=== PATIENT | male | born 1965 | race Caucasian/White ===

== ENCOUNTER 2016-10-06 12:36 | Inpatient (IN) | payer BC, OTHER, MEDICARE ==
[2016-10-06] MEDS ORDERED: HumuLIN R SUBCUT PRN (14:42)
[2016-10-06] MEDS ORDERED: PHARMACY CONSULT - DOSE _____ XX SCH (14:42)
[2016-10-06 15:21] LABS: BASOPHILS % (AUTO) 0.9 % (0.2-1.0); EOSINOPHILS # (AUTO) 0.2 x10^3/uL (0.0-0.2); EOSINOPHILS % (AUTO) 4.6 % (0.9-2.9); HEMATOCRIT 41.2 % (42.0-54.0); LYMPHOCYTES # (AUTO) 1.7 X10^3/uL (1.3-2.9); LYMPHOCYTES % (AUTO) 32.4 % (21.0-51.0); MEAN CORPUSCULAR HEMOGLOBIN 29.6 pg (27.0-34.0); MEAN CORPUSCULAR VOLUME 87.2 fL (80.0-100.0); MEAN PLATELET VOLUME 8.4 fL (7.4-11.0); MONOCYTES # (AUTO) 0.4 x10^3/uL (0.3-0.8); MONOCYTES % (AUTO) 7.1 % (0.0-13.0); NEUTROPHILS # (AUTO) 2.8 x10^3/uL (2.2-4.8); PLATELET COUNT 182 X10^3/uL (150.0-450.0); RED BLOOD COUNT 4.72 X10^6/uL (4.7-6.0); RED CELL DISTRIBUTION WIDTH 13.5 % (11.6-16.5); WHITE BLOOD COUNT 5.1 X10^3/uL (3.6-10.0)
[2016-10-06 15:36] LABS: ALANINE AMINOTRANSFERASE 40 Units/L (12-78); ALBUMIN 3.5 g/dL (3.4-5.0); ALKALINE PHOSPHATASE 61 Units/L (46-116); ASPARTATE AMINO TRANSFERASE 23 Units/L (15-37); BLOOD UREA NITROGEN 21 mg/dL (7-18); CALCIUM 8.2 mg/dL (8.5-10.1); CARBON DIOXIDE 30.8 mmol/L (21-32); CHLORIDE 109 mmol/L (98-107); GLUCOSE 93 mg/dL (65-99); SODIUM 144 mmol/L (136-145); TOTAL PROTEIN 7.1 g/dL (6.4-8.2); eGFR BLACK RACES > 60 (>60); eGFR NON BLACK RACES > 60 (>60)
[2016-10-06] MEDS: NS 1000 ML 1,000 ML IV SCH (16:28)
[2016-10-06] MEDS: VANCOMYCIN 1 GM PREMIX (ADDVANTAGE) 250 ML IV SCH ×2 (16:29→21:00)
[2016-10-06] MEDS: DURAGESIC 75 mcg/HR PATCH TD SCH (17:44)
[2016-10-06] MEDS: SNACK - Diabetic Appropriate PO SCH (20:48)
[2016-10-06] MEDS: RESTORIL CAP 30 MG PO SCH (20:50)
[2016-10-06] MEDS: NORCO 10/325 TAB PO PRN (20:50)
[2016-10-06] MEDS: TOPAMAX PO SCH (20:51)
[2016-10-06] MEDS: ZANAFLEX PO SCH (20:51)
[2016-10-06] MEDS: KLONOPIN TAB 1 MG PO SCH (20:51)
[2016-10-06] MEDS: NEURONTIN CAP 300 MG PO SCH (21:00)
--- NOTE | 2016-10-06 21:51 | DR.UPDATE ---
H&P Update History and Physical Update: WAS SEEN IN OUR OFFICE TODAY WITH COMPLAINTS OF LEFT LOWER LEG CELLULITIS THAT HAS NOT IMPROVED DESPITE A 7 DAY COURSE OF CIPRO 500MG BID. HE IS NOTED WITH REDNESS AND WARMTH TO LEFT LOWER LEG. WE ADMITTED HIM FOR FURTHER TREATMENT AND EVALUATION. A H&P WAS COMPLETED WITH HIS LAST VISIT TO THE OFFICE ON 09/29/16. HE HAS BEEN SEEN AND EXAMINED WITH NO CHANGES NOTED TO H&P. Changes noted: NO Yes with the following:
[2016-10-07] MEDS: NEURONTIN CAP 300 MG PO SCH ×3 (06:12→21:48)
[2016-10-07] MEDS: VANCOMYCIN 1 GM PREMIX (ADDVANTAGE) 250 ML IV SCH ×3 (06:13→21:46)
[2016-10-07] MEDS: NS 1000 ML 1,000 ML IV SCH ×2 (06:14→17:59)
[2016-10-07 06:21] LABS: BASOPHILS % (AUTO) 0.6 % (0.2-1.0); EOSINOPHILS # (AUTO) 0.3 x10^3/uL (0.0-0.2); HEMATOCRIT 42.3 % (42.0-54.0); HEMOGLOBIN 13.9 g/dL (13.5-18.0); LYMPHOCYTES # (AUTO) 2.1 X10^3/uL (1.3-2.9); LYMPHOCYTES % (AUTO) 40.2 % (21.0-51.0); MEAN CORPUSCULAR HEMOGLOBIN 29.2 pg (27.0-34.0); MEAN CORPUSCULAR HGB CONC 32.8 g/dL (33.0-35.0); MEAN CORPUSCULAR VOLUME 89.1 fL (80.0-100.0); MEAN PLATELET VOLUME 8.9 fL (7.4-11.0); MONOCYTES # (AUTO) 0.3 x10^3/uL (0.3-0.8); MONOCYTES % (AUTO) 5.6 % (0.0-13.0); NEUTROPHILS # (AUTO) 2.5 x10^3/uL (2.2-4.8); NEUTROPHILS % (AUTO) 48.6 % (42.0-75.0); PLATELET COUNT 154 X10^3/uL (150.0-450.0); RED BLOOD COUNT 4.74 X10^6/uL (4.7-6.0); RED CELL DISTRIBUTION WIDTH 13.7 % (11.6-16.5); WHITE BLOOD COUNT 5.2 X10^3/uL (3.6-10.0)
[2016-10-07 06:48] LABS: ALANINE AMINOTRANSFERASE 36 Units/L (12-78); ALBUMIN 3.2 g/dL (3.4-5.0); ALKALINE PHOSPHATASE 53 Units/L (46-116); ASPARTATE AMINO TRANSFERASE 18 Units/L (15-37); BLOOD UREA NITROGEN 18 mg/dL (7-18); CALCIUM 7.9 mg/dL (8.5-10.1); CARBON DIOXIDE 30.1 mmol/L (21-32); CHLORIDE 111 mmol/L (98-107); COR CA(FOR HYPOALB) 8.5 mg/dL (8.5-10.1); CREATININE 0.97 mg/dL (0.70-1.30); GLUCOSE 88 mg/dL (65-99); SODIUM 145 mmol/L (136-145); TOTAL PROTEIN 6.8 g/dL (6.4-8.2); eGFR BLACK RACES > 60 (>60); eGFR NON BLACK RACES > 60 (>60)
[2016-10-07] MEDS: LEVAQUIN PREMIX IV 500 MG 500 MG/100 ML BAG IV SCH (08:48)
[2016-10-07] MEDS: MOBIC TAB 15 MG PO SCH (08:48)
[2016-10-07] MEDS: REQUIP PO SCH (08:48)
[2016-10-07] MEDS: KLONOPIN TAB 1 MG PO SCH ×2 (08:49→21:49)
[2016-10-07] MEDS: TOPAMAX PO SCH ×2 (08:49→21:48)
[2016-10-07] MEDS: ZANAFLEX PO SCH ×2 (08:49→21:48)
[2016-10-07] MEDS: LOPRESSOR TAB 50 MG PO SCH (08:49)
[2016-10-07] MEDS: PriLOSEC PO SCH (08:49)
[2016-10-07] MEDS ORDERED: CYMBALTA PO SCH (09:00)
[2016-10-07 13:49] LABS: CREATININE 0.94 mg/dL (0.70-1.30); VANCOMYCIN,TROUGH 12.9 ug/mL (15-20)
[2016-10-07] MEDS ORDERED: PHARMACY CONSULT - VANCOMYCIN XX SCH (21:00)
[2016-10-07] MEDS: NORCO 10/325 TAB PO PRN (21:47)
[2016-10-07] MEDS: RESTORIL CAP 30 MG PO SCH (21:48)
[2016-10-07] MEDS: SNACK - Diabetic Appropriate PO SCH (21:50)
[2016-10-08 06:20] LABS: BASOPHILS % (AUTO) 0.9 % (0.2-1.0); EOSINOPHILS # (AUTO) 0.3 x10^3/uL (0.0-0.2); EOSINOPHILS % (AUTO) 5.7 % (0.9-2.9); HEMATOCRIT 40.7 % (42.0-54.0); HEMOGLOBIN 13.5 g/dL (13.5-18.0); LYMPHOCYTES # (AUTO) 2.1 X10^3/uL (1.3-2.9); LYMPHOCYTES % (AUTO) 40.2 % (21.0-51.0); MEAN CORPUSCULAR HEMOGLOBIN 29.3 pg (27.0-34.0); MEAN CORPUSCULAR VOLUME 88.8 fL (80.0-100.0); MEAN PLATELET VOLUME 8.8 fL (7.4-11.0); MONOCYTES # (AUTO) 0.3 x10^3/uL (0.3-0.8); MONOCYTES % (AUTO) 6.2 % (0.0-13.0); NEUTROPHILS # (AUTO) 2.5 x10^3/uL (2.2-4.8); PLATELET COUNT 150 X10^3/uL (150.0-450.0); RED BLOOD COUNT 4.59 X10^6/uL (4.7-6.0); RED CELL DISTRIBUTION WIDTH 13.4 % (11.6-16.5); WHITE BLOOD COUNT 5.3 X10^3/uL (3.6-10.0)
[2016-10-08] MEDS: NS 1000 ML 1,000 ML IV SCH ×2 (06:25→18:25)
[2016-10-08] MEDS: VANCOMYCIN 1 GM PREMIX (ADDVANTAGE) 250 ML IV SCH (06:25)
[2016-10-08] MEDS: NEURONTIN CAP 300 MG PO SCH ×3 (06:25→21:38)
[2016-10-08 07:18] LABS: ALANINE AMINOTRANSFERASE 36 Units/L (12-78); ALKALINE PHOSPHATASE 61 Units/L (46-116); ASPARTATE AMINO TRANSFERASE 20 Units/L (15-37); BLOOD UREA NITROGEN 21 mg/dL (7-18); CARBON DIOXIDE 25.5 mmol/L (21-32); CHLORIDE 111 mmol/L (98-107); COR CA(FOR HYPOALB) 8.8 mg/dL (8.5-10.1); COR NA(FOR HYPERGLY) 145 mmol/L (136-145); CREATININE 0.95 mg/dL (0.70-1.30); GLUCOSE 116 mg/dL (65-99); SODIUM 145 mmol/L (136-145); TOTAL PROTEIN 6.5 g/dL (6.4-8.2); eGFR BLACK RACES > 60 (>60); eGFR NON BLACK RACES > 60 (>60)
[2016-10-08] MEDS: LEVAQUIN PREMIX IV 500 MG 500 MG/100 ML BAG IV SCH (08:39)
[2016-10-08] MEDS: MOBIC TAB 15 MG PO SCH (08:43)
[2016-10-08] MEDS: REQUIP PO SCH ×2 (08:43→21:37)
[2016-10-08] MEDS: TOPAMAX PO SCH ×2 (08:44→21:36)
[2016-10-08] MEDS: LOPRESSOR TAB 50 MG PO SCH (08:44)
[2016-10-08] MEDS: ZANAFLEX PO SCH ×2 (08:44→21:36)
[2016-10-08] MEDS: KLONOPIN TAB 1 MG PO SCH ×2 (08:44→21:37)
[2016-10-08] MEDS: PriLOSEC PO SCH (08:44)
[2016-10-08 09:07] VITALS: BMI 34.0
[2016-10-08] MEDS ORDERED: INVANZ INJ 1 GM VIAL ONE (11:07)
[2016-10-08] MEDS ORDERED: NS 50 ML IV 0 ML IV ONE (11:07)
[2016-10-08] MEDS ORDERED: NS 50 ML IV + SPIKE MINIBAG* 50 ML IV ONE (11:08)
[2016-10-08] MEDS: INVANZ INJ 1 GM VIAL 1 GM in NS 50 ML IV + SPIKE MINIBAG* 50 ML IV SCH (11:22)
[2016-10-08 15:26] LABS: CREATININE 0.99 mg/dL (0.70-1.30); VANCOMYCIN,TROUGH 17.8 ug/mL (15-20)
[2016-10-08] MEDS: RESTORIL CAP 30 MG PO SCH (21:36)
[2016-10-08] MEDS: NORCO 10/325 TAB PO PRN (21:36)
[2016-10-08] MEDS: CYMBALTA PO SCH (21:37)
[2016-10-08] MEDS: SNACK - Diabetic Appropriate PO SCH (21:38)
[2016-10-09 05:09] LABS: ALANINE AMINOTRANSFERASE 37 Units/L (12-78); ALBUMIN 3.1 g/dL (3.4-5.0); ALKALINE PHOSPHATASE 51 Units/L (46-116); ASPARTATE AMINO TRANSFERASE 18 Units/L (15-37); BLOOD UREA NITROGEN 17 mg/dL (7-18); CALCIUM 8.1 mg/dL (8.5-10.1); CARBON DIOXIDE 29.3 mmol/L (21-32); CHLORIDE 110 mmol/L (98-107); COR CA(FOR HYPOALB) 8.8 mg/dL (8.5-10.1); CREATININE 0.85 mg/dL (0.70-1.30); GLUCOSE 85 mg/dL (65-99); SODIUM 145 mmol/L (136-145); TOTAL PROTEIN 6.6 g/dL (6.4-8.2); eGFR BLACK RACES > 60 (>60); eGFR NON BLACK RACES > 60 (>60)
[2016-10-09 05:17] LABS: BASOPHILS % (AUTO) 0.7 % (0.2-1.0); EOSINOPHILS # (AUTO) 0.3 x10^3/uL (0.0-0.2); EOSINOPHILS % (AUTO) 5.7 % (0.9-2.9); HEMATOCRIT 40.1 % (42.0-54.0); HEMOGLOBIN 13.3 g/dL (13.5-18.0); LYMPHOCYTES % (AUTO) 43.4 % (21.0-51.0); MEAN CORPUSCULAR HEMOGLOBIN 29.2 pg (27.0-34.0); MEAN CORPUSCULAR HGB CONC 33.2 g/dL (33.0-35.0); MEAN PLATELET VOLUME 8.9 fL (7.4-11.0); MONOCYTES # (AUTO) 0.2 x10^3/uL (0.3-0.8); MONOCYTES % (AUTO) 5.1 % (0.0-13.0); NEUTROPHILS # (AUTO) 2.1 x10^3/uL (2.2-4.8); NEUTROPHILS % (AUTO) 45.1 % (42.0-75.0); PLATELET COUNT 148 X10^3/uL (150.0-450.0); RED BLOOD COUNT 4.55 X10^6/uL (4.7-6.0); RED CELL DISTRIBUTION WIDTH 13.3 % (11.6-16.5); WHITE BLOOD COUNT 4.7 X10^3/uL (3.6-10.0)
[2016-10-09] MEDS: NEURONTIN CAP 300 MG PO SCH ×3 (06:02→21:54)
[2016-10-09] MEDS: NS 1000 ML 1,000 ML IV SCH ×2 (06:03→21:53)
[2016-10-09] MEDS: TOPAMAX PO SCH ×2 (09:09→21:54)
[2016-10-09] MEDS: INVANZ INJ 1 GM VIAL 1 GM in NS 50 ML IV + SPIKE MINIBAG* 50 ML IV SCH (09:09)
[2016-10-09] MEDS: ZANAFLEX PO SCH ×2 (09:10→21:54)
[2016-10-09] MEDS: PriLOSEC PO SCH (09:10)
[2016-10-09] MEDS: KLONOPIN TAB 1 MG PO SCH ×2 (09:10→21:55)
[2016-10-09] MEDS: LOPRESSOR TAB 50 MG PO SCH (09:10)
[2016-10-09] MEDS: MOBIC TAB 15 MG PO SCH (09:10)
--- NOTE | 2016-10-09 09:44 | PCM.PROG ---
Progress Note - Progress Note for Day of Date: 10/09/16 - Subjective Subjective: WAS A DIRECT ADMISSION FROM OUR OFFICE FOR LEFT LOWER LEG CELLULITIS. HE IS ALERT AND ORIENTED, SITTING UP IN BED ON MORNING ROUNDS. HE HAS NO COMPLAINTS THIS MORNING. LEFT LOWER LEG NOTED WITH DRESSING THAT IS DRY AND INTACT, AND REDNESS SURROUNDING AREA OF SKIN AROUND DRESSING. VITALS ARE 98.7-54-10-100%-132/75. CBC WNL EXCEPT RBC 4.55, HGB 13.3, HCT 40.1. CMP WNL EXCEPT CHLORIDE 110, CALCIUM 8.1, TOTAL BILIRUBIN 0.10, ALBUMIN 3.1. WOUND CULTURE GREW OUT PROTEUS MIRABILIS. IT IS SENSITIVE TO INVANZ. WE WILL CONTINUE WITH CURRENT PLAN OF CARE, RECHECK LABS, AND FOLLOW UP WITH PATIENT IN AM WITH PLANS TO DISCHARGE IF STABLE. - Past Medical Family Social History Past Med/Fam/Surg Hx: No changes since H&P Allergies: Allergies No Known Drug Allergies Allergy (Verified 10/06/16 15:35) - Review of Systems ROS: No change since H&P - Vital Signs and I&O's Vital Signs: Temperature 97.8 F Pulse Rate [Left Radial] 54 Respiratory Rate 10 Blood Pressure [Left Arm] 132/75 Blood Pressure [Right Arm] 150/80 O2 Sat by Pulse Oximetry 100 Intake and Output: Intake & Output 10/06/16 10/07/16 10/08/16 10/09/16 11:59 11:59 11:59 11:59 Intake Total 790 2224 1025 Balance 790 2224 1025 - Physical Exam Oriented: Normal Eyes: Normal Ear: Normal Nose: Normal Throat: Normal Respiratory: Normal Cardiovascular: Normal : Normal Auscultation: Bowel Sounds: Normal Palpation: Normal Tenderness: Normal Skin: Red (LEFT LOWER LEG ), Wound Musculoskeletal: Normal Psychiatric: Normal Mood Description: Calm Affect: Normal Speech Pattern: Clear, Appropriate - Laboratory and Diagnostics Result Diagrams: 10/09/16 03:24 10/09/16 03:24 Labs: 10/06/16 15:23 Leg - Left Gram Stain - Final 10/06/16 15:23 Leg - Left Wound Culture - Final Proteus Mirabilis Laboratory WBC 4.7 X10^3/uL (3.6-10.0) 10/09/16 03:24 RBC 4.55 X10^6/uL (4.7-6.0) L 10/09/16 03:24 Hgb 13.3 g/dL (13.5-18.0) L 10/09/16 03:24 Hct 40.1 % (42.0-54.0) L 10/09/16 03:24 MCV 88.0 fL (80.0-100.0) 10/09/16 03:24 MCH 29.2 pg (27.0-34.0) 10/09/16 03:24 MCHC 33.2 g/dL (33.0-35.0) 10/09/16 03:24 RDW 13.3 % (11.6-16.5) 10/09/16 03:24 Plt Count 148 X10^3/uL (150.0-450.0) L 10/09/16 03:24 MPV 8.9 fL (7.4-11.0) 10/09/16 03:24 Neut % 45.1 % (42.0-75.0) 10/09/16 03:24 Lymph % 43.4 % (21.0-51.0) 10/09/16 03:24 [place] % 5.1 % (0.0-13.0) 10/09/16 03:24 Eos % 5.7 % (0.9-2.9) H 10/09/16 03:24 Baso % 0.7 % (0.2-1.0) 10/09/16 03:24 Neut # 2.1 x10^3/uL (2.2-4.8) L 10/09/16 03:24 Lymph # 2.0 X10^3/uL (1.3-2.9) 10/09/16 03:24 [place] # 0.2 x10^3/uL (0.3-0.8) L 10/09/16 03:24 Eos # 0.3 x10^3/uL (0.0-0.2) H 10/09/16 03:24 Baso # 0.0 X10^3/uL (0.0-0.1) 10/09/16 03:24 Absolute Nucleated RBC 0.3 /100WBC 10/09/16 03:24 Sodium 145 mmol/L (136-145) 10/09/16 03:24 Corrected Sodium TNP 10/09/16 03:24 Potassium 4.0 mmol/L (3.5-5.1) 10/09/16 03:24 Chloride 110 mmol/L (98-107) H 10/09/16 03:24 Carbon Dioxide 29.3 mmol/L (21-32) 10/09/16 03:24 BUN 17 mg/dL (7-18) 10/09/16 03:24 Creatinine 0.85 mg/dL (0.70-1.30) 10/09/16 03:24 Est GFR (MDRD) Af Amer > 60 (>60) 10/09/16 03:24 Est GFR (MDRD) Non-Af > 60 (>60) 10/09/16 03:24 Glucose 85 mg/dL (65-99) 10/09/16 03:24 Calcium 8.1 mg/dL (8.5-10.1) L 10/09/16 03:24 Corrected Calcium 8.8 mg/dL (8.5-10.1) 10/09/16 03:24 Total Bilirubin 0.10 mg/dL (0.2-1.0) L 10/09/16 03:24 AST 18 Units/L (15-37) 10/09/16 03:24 ALT 37 Units/L (12-78) 10/09/16 03:24 Alkaline Phosphatase 51 Units/L (46-116) 10/09/16 03:24 Total Protein 6.6 g/dL (6.4-8.2) 10/09/16 03:24 Albumin 3.1 g/dL (3.4-5.0) L 10/09/16 03:24 Globulin 3.5 g/dL (2.5-4.5) 10/09/16 03:24 Albumin/Globulin Ratio 0.9 Ratio (1.1-2.1) L 10/09/16 03:24 Vancomycin Trough 17.8 ug/mL (15-20) 10/08/16 13:55 - Plan (1) Cellulitis of left leg Status: Acute Plan: CONTINUE INVANZ, CONTINUE WOUND CARE, CONTINUE TO MONITOR (2) Proteus mirabilis infection Status: Acute Plan: CONTINUE INVANZ, CONTINUE WOUND CARE, CONTINUE TO MONITOR (3) Depression Status: Chronic Qualifiers: Depression Type: major depressive disorder Major depression recurrence: recurrent Active/Remission status: currently active Major depression episode severity: unspecified Psychotic features: P Trimester: T Qualified Code(s): F33.9 - Major depressive disorder, recurrent, unspecified Plan: CONTINUE CYMBALTA, CONTINUE TO MONITOR (4) GERD (gastroesophageal reflux disease) Status: Chronic Qualifiers: Esophagitis presence: esophagitis presence not specified Qualified Code(s) : K21.9 - Gastro-esophageal reflux disease without esophagitis Plan: CONTINUE PRILOSEC, CONTINUE TO MONITOR (5) Hypertension Status: Chronic Qualifiers: Hypertension type: essential hypertension Qualified Code(s): I10 - Essential (primary) hypertension Plan: CONTINUE LOPRESSOR, CONTINUE TO MONITOR (6) Chronic neck and back pain Status: Acute Plan: CONTINUE NORCO, CONTINUE DURAGESIC PATCH, CONTINUE MOBIC, CONTINUE ZANAFLEX, CONTINUE TO MONITOR (7) Seizures Status: Chronic Plan: CONTINUE TOPAMAX, CONTINUE TO MONITOR
[2016-10-09] MEDS: DURAGESIC 75 mcg/HR PATCH TD SCH (17:35)
[2016-10-09] MEDS: CYMBALTA PO SCH (21:54)
[2016-10-09] MEDS: REQUIP PO SCH (21:54)
[2016-10-09] MEDS: NORCO 10/325 TAB PO PRN (21:54)
[2016-10-09] MEDS: RESTORIL CAP 30 MG PO SCH (21:55)
[2016-10-09] MEDS: SNACK - Diabetic Appropriate PO SCH (21:55)
[2016-10-10] MEDS: NEURONTIN CAP 300 MG PO SCH ×2 (05:28→14:00)
[2016-10-10] MEDS: NS 1000 ML 1,000 ML IV SCH ×3 (05:28→09:56)
[2016-10-10 05:29] LABS: BASOPHILS % (AUTO) 0.7 % (0.2-1.0); EOSINOPHILS # (AUTO) 0.3 x10^3/uL (0.0-0.2); EOSINOPHILS % (AUTO) 4.4 % (0.9-2.9); HEMOGLOBIN 14.9 g/dL (13.5-18.0); LYMPHOCYTES # (AUTO) 2.7 X10^3/uL (1.3-2.9); LYMPHOCYTES % (AUTO) 39.8 % (21.0-51.0); MEAN CORPUSCULAR HEMOGLOBIN 29.3 pg (27.0-34.0); MEAN CORPUSCULAR HGB CONC 33.2 g/dL (33.0-35.0); MEAN CORPUSCULAR VOLUME 88.3 fL (80.0-100.0); MEAN PLATELET VOLUME 8.8 fL (7.4-11.0); MONOCYTES # (AUTO) 0.3 x10^3/uL (0.3-0.8); MONOCYTES % (AUTO) 4.2 % (0.0-13.0); NEUTROPHILS # (AUTO) 3.5 x10^3/uL (2.2-4.8); NEUTROPHILS % (AUTO) 50.9 % (42.0-75.0); PLATELET COUNT 194 X10^3/uL (150.0-450.0); RED CELL DISTRIBUTION WIDTH 13.5 % (11.6-16.5); WHITE BLOOD COUNT 6.8 X10^3/uL (3.6-10.0)
[2016-10-10 05:41] LABS: ALANINE AMINOTRANSFERASE 46 Units/L (12-78); ALBUMIN 3.7 g/dL (3.4-5.0); ALKALINE PHOSPHATASE 61 Units/L (46-116); ASPARTATE AMINO TRANSFERASE 24 Units/L (15-37); BLOOD UREA NITROGEN 18 mg/dL (7-18); CALCIUM 8.7 mg/dL (8.5-10.1); CARBON DIOXIDE 30.3 mmol/L (21-32); CHLORIDE 106 mmol/L (98-107); CREATININE 0.94 mg/dL (0.70-1.30); GLUCOSE 94 mg/dL (65-99); SODIUM 142 mmol/L (136-145); TOTAL PROTEIN 7.9 g/dL (6.4-8.2); eGFR BLACK RACES > 60 (>60); eGFR NON BLACK RACES > 60 (>60)
[2016-10-10] MEDS: NORCO 10/325 TAB PO PRN (07:32)
[2016-10-10] MEDS: INVANZ INJ 1 GM VIAL 1 GM in NS 50 ML IV + SPIKE MINIBAG* 50 ML IV SCH (09:01)
[2016-10-10] MEDS: LOPRESSOR TAB 50 MG PO SCH (09:02)
[2016-10-10] MEDS: KLONOPIN TAB 1 MG PO SCH (09:02)
[2016-10-10] MEDS: TOPAMAX PO SCH (09:02)
[2016-10-10] MEDS: MOBIC TAB 15 MG PO SCH (09:02)
[2016-10-10] MEDS: PriLOSEC PO SCH (09:02)
[2016-10-10] MEDS: ZANAFLEX PO SCH (09:03)
[2016-10-10 16:35] VITALS: BP 127/76
== END 2016-10-10 18:10 | disposition home or self-care (01) | DRG 603 ==
LOC: MED/SURG 12:36
PROVIDERS: ADMIT Internal Medicine; ATTEND Internal Medicine
DX: L03.116 Cellulitis of left lower limb (principal); E03.8 Other specified hypothyroidism; E11.9 Type 2 diabetes mellitus without complications; E29.1 Testicular hypofunction; F41.1 Generalized anxiety disorder; G89.4 Chronic pain syndrome; B96.4 Proteus (mirabilis) (morganii) as the cause of diseases classified elsewhere; F33.8 Other recurrent depressive disorders; K21.9 Gastro-esophageal reflux disease without esophagitis; I10 Essential (primary) hypertension; M54.2 Cervicalgia; M54.89 Other dorsalgia; G40.89 Other seizures; R13.11 Dysphagia, oral phase
CPT/HCPCS: 36415; 80053; 80202; 82565; 85025; 87070; 87075; 87077; 87186; 87205; A4216; A4222; J1335; J1956; J3370

== ENCOUNTER → 2017-02-07 | Outpatient (CLI) | payer BC, OTHER, MEDICARE ==
--- NOTE | 2017-02-07 17:36 | RAD ---
Examination: Right shoulder, three views History: Shoulder pain Findings: No fracture or dislocation or bone destruction noted. There is slight degenerative narrowin g of the acromioclavicular and glenohumeral joints. The humeral head is in normal position. Impression: No acute abnormality noted. Mild degenerative changes in AC joint and glenohumeral joint. Reported By:
--- NOTE | 2017-02-08 06:36 | RAD ---
Examination: Lumbar spine, five views History: Pain Findings: AP and lateral views were obtained including lateral views in flexion and extension. Pedicl e screws and stabilizing rods are present at L4-L5-S1. Disc narrowing is present at L3-4-5-S1. The th ere is minimal anterior listhesis at L3-4. Posterior lateral bony fusion is suggested. The upper lumb ar segments are normal. No change in vertebral alignment is demonstrated between flexion/extension. Impression: Status post L4-S1 PLIF. Degenerative disc changes at L3-4 with minimal degenerative anter ior listhesis. No acute features demonstrated. Reported By:
--- NOTE | 2017-02-08 11:10 | MRI ---
MRI SPINE LUMBAR WITHOUT CONTRAST CLINICAL HISTORY: 51-year-old male with low back pain and bilateral radicular symptoms. Prior back roque rgery. COMPARISON: Radiographs lumbar spine 02/07/2017. Technique: Multiplanar, multisequence MRI images of the lumbar spine were obtained without the admin istration of contrast. FINDINGS: The most caudad, fully-formed intervertebral disc will be labeled L5-S1 for the purpose of this dictation and in keeping with prior imaging. Straightening of the lumbar lordosis is imaged. Pos terior spinal fusion present L4-S1 with bilateral pedicular screws and vertical stabilization rods wi thout evidence of hardware failure. This creates susceptibility artifact which precludes complete adri luation of the immediately adjacent structures. Vertebral body heights are preserved. Marrow signal a martin below the fusion construct is normal. Disc space and signal is overall preserved. Cord signal is normal. The conus medullaris is normal in signal characteristics and morphology and terminates at th e L2 level. T11-T12: Disc bulge without central canal or neural foraminal stenosis. T12-L1: Small symmetric disc bulge with mild facet arthropathy and thickened flavum without central c anal or neural foraminal stenosis. L1-L2: Moderate symmetric disc bulge and facet arthropathy with thickened flavum. No central canal or neural foraminal stenosis. L2-L3: Large symmetric disc bulge with moderate to severe facet arthropathy and thickened flavum. Pro minent dorsal epidural fat combines to narrows central canal at 8.5 mm. No neural foraminal stenosis. L3-L4: Large symmetric disc bulge with severe facet arthropathy and thickening of ligamentum flavum w ith central canal narrowed to 6.8 mm. [id number] bilateral neural foraminal stenosis with kristin ening of the ventral and dorsal aspect of the exiting right L3 nerve root. There is mild clumping of the cauda equina above this level. L4-L5: No central canal or neural foraminal stenosis. L5-S1: No central canal or neural foraminal stenosis. Fatty atrophy of the paraspinous musculature adjacent to the fusion construct with mild inflammatory change without focal fluid collection. Remaining paraspinous soft tissues are unremarkable. IMPRESSION: 1. Multilevel disc degeneration and spondyloarthropathy most severe at L3-L4. 2. Status post posterior spinal fusion L4-S1 with mild inflammatory changes and fatty atrophy at the level of the fusion construct within the paraspinous musculature. 3. See level by level descriptions above. Reported By:
--- NOTE | 2017-02-09 21:28 | MRI ---
MRI of the right shoulder Indication: Pain with tingling Technique: Multiplanar MRI images of the right shoulder was performed without gadolinium. Findings: There is a moderate grade partial bursal surface tear of the anterior fibers of the infra s pinatus tendon which delaminated anteriorly to involve the posterior fibers of the supraspinatus tend on and to the mild tendinous junction of the infra spinatus tendon. There is marked tendinosis of the remaining tendon. The subscapularis shows mild tendinosis. There is tendinosis versus low-grade part ial tear of the long-head of the biceps tendon. There is mild fatty atrophy of the infra spinatus ten don with moderate to severe fatty atrophy of the teres minor. No labral tear is seen. There is mild d egenerative arthrosis of the glenohumeral joint with moderate degenerative changes of the AC joint. Conclusion: 1. High-grade partial bursal surface tear of the anterior fibers of the infra spinatus tendon which d elaminates to involve the supraspinatus tendon as well as to the myotendinous junction of the infra s pinatus tendon. There is mild fatty atrophy of the infra spinatus tendon. 2. Tendinosis of the subscapularis and long head of the biceps tendon. 3. Advanced atrophy of teres minor is nonspecific Reported By:
== END ==
LOC: RAD 15:18
PROVIDERS: ATTEND Neurological Surgery
DX: M25.511 Pain in right shoulder (principal); M47.897 Other spondylosis, lumbosacral region
CPT/HCPCS: 72110; 72148; 73030; 73221

== ENCOUNTER → 2017-03-14 | Outpatient (CLI) | payer BC, OTHER, MEDICARE ==
--- NOTE | 2017-03-14 11:35 | MRI ---
MRI OF THE CERVICAL SPINE WITHOUT IV CONTRAST CLINICAL INDICATION: Neck pain radiating to upper extremities TECHNIQUE: Pre-contrast sagittal T1-, T2-, and T2-w fat-saturated images, and axial T1- and T2-w imag es of the cervical spine. COMPARISON: None. FINDINGS: Normal alignment. ACDF C4-C5. Vertebral bodies are normal in height. There is a normal marrow signal pattern. Mild multilevel degenerative disc signal. There is no abnormality of the cranio-cervical guy ction. The included paraspinal soft tissues are grossly normal. Evaluation of the individual levels demonstrates: C1-2: Normal C2-3: Mild eccentric right disc osteophyte complex resulting in mild right-sided neural foraminal earl nosis. C3-4: Disc osteophyte complex with minimal central stenosis. There is moderate to severe right-sided neural foraminal stenosis and mild left-sided neural foraminal stenosis. C4-5: The centric right disc osteophyte complex without central stenosis. Moderate to severe right-si ded neural foraminal stenosis. C5-6: Disc osteophyte complex with moderate central stenosis and moderate bilateral neural foraminal stenosis C6-7: Mild disc osteophyte complex with no significant central or neural foraminal stenosis. C7-T1: Normal IMPRESSION: 1. Multilevel degenerative disc disease with varying degrees of central and neural foraminal stenosis as above. Reported By:
--- NOTE | 2017-03-14 14:00 | RAD ---
Examination: Cervical spine, 6 views History: Cervical disc disorder Findings: AP, and lateral and open-mouth views of the odontoid were obtained, including lateral views in flexion and extension. Surgical screw-plate fixation device is noted at C4-5 with apparently fuse d interspace. Alignment of vertebrae is anatomic and does not change between flexion and extension. T here is minimal anterior osteophyte formation at C5-6. No fracture, infection or hardware abnormality is noted. Impression: No acute process. Status post ACDF C4-5. Mild degenerative change at C5-6 interspace. Reported By:
--- NOTE | 2017-03-14 14:54 | CT ---
Examination: CT of the lumbar spine. Clinical history: Low back pain, past surgery, preop for future surgery. Technique: Multiple axial images were obtained from the level of T12 down to the sacrum. Sagittal and coronal reformatted images were also obtained. Dose reduction techniques including automated exposur e control (AEC) and adjustment of mA and kV were utilized. Comparison: MRI of the lumbar spine dated 02/07/2017. Findings: The vertebral body alignment is within normal limits. There is mild narrowing of the L5-S1 intervertebral disc space. There are postsurgical changes from fusion surgery at the L4-S1 levels, with posterior placed metalli c rods noted and intrapedicular screws seen extending into the L4 and L5 vertebral bodies, as well as the S1 segment of the sacrum. There is evidence of bony fusion of the posterior elements at these le vels. There are tiny vertebral body endplate deformities, consistent with Schmorl's nodes noted at the L1 a nd L3 levels. No acute fracture, dislocation, or destructive bony lesion is noted. No paraspinal abnormality is noted. L1-L2: There is a minor broad-based bulge of the annulus fibrosis, minimally encroaching on the ventr al aspect of the thecal sac. No neural foraminal narrowing or central canal stenosis is noted. Mild f acet joint degenerative changes are noted bilaterally. L2-L3: There is a mild broad-based bulge of the annulus fibrosis, encroaching on the ventral aspect o f the thecal sac and causing mild bilateral neural foraminal narrowing. Facet joint degenerative nazario ges are noted bilaterally, with the combination of findings resulting in a mild central canal stenosi s. L3-L4: There is a marked broad-based bulge of the annulus fibrosis, encroaching on the ventral aspect of the thecal sac and causing [id number] bilateral neural foraminal narrowing. Marked facet joint degenerative changes are noted bilaterally, with the combination of findings resulting in a sev ere central canal stenosis. L4-L5: There is no focal or diffuse bulge of the annulus fibrosis, neural foraminal narrowing or cent ral canal stenosis. L5-S1: There is no focal or diffuse bulge of the annulus fibrosis, neural foraminal narrowing or cent ral canal stenosis. Impression: 1. Multilevel disc degenerative and facet joint degenerative changes resulting in neural foraminal na rrowing and central canal stenosis, as described above. 2. Postsurgical changes from fusion surgery at the L4-S1 levels, as described above. 3. Tiny Schmorl's nodes at the L1 and L3 levels. Reported By:
== END ==
LOC: RAD 09:09
PROVIDERS: ATTEND Neurological Surgery
DX: M50.122 Cervical disc disorder at C5-C6 level with radiculopathy (principal); M54.16 Radiculopathy, lumbar region
CPT/HCPCS: 72050; 72131; 72141